=== PATIENT | male | born 1970 | race Caucasian/White ===

== ENCOUNTER 2019-06-13 14:13 | Outpatient (CLI) | payer OTHER ==
--- NOTE | 2019-06-14 06:37 | MRI Report ---
Reason: DORSALGIA, PAIN IN THIGH Procedure Date: 06/13/2019 Accession Number: [id number] / [id number] Procedure: MRI - Lumbar Spine W/O CPT Code: Final Report FULL RESULT: EXAM: MRI LUMBAR SPINE WITHOUT CONTRAST EXAM DATE: 06/13/2019 03:20 PM. CLINICAL HISTORY: Chronic right buttock and thigh pain. Right leg paresthesias. COMPARISON: None. TECHNIQUE: Multiplanar, multisequence T1-weighted and fluid-sensitive sequences of the lumbar spine from T12 to S1 without contrast. Other: None. FINDINGS: Comment: For counting purposes, a transitional vertebra at the lumbosacral junction is designated L5. The L5-S1 disk space is slightly hypoplastic compared to the remaining lumbar disk spaces. Spinal Canal: The conus terminates at T12 based on the numbering system described above.. The conus medullaris and cauda equina are unremarkable. Alignment: There is slight right convexity lumbar curvature suggesting mild scoliosis. There is no spondylolisthesis. Bone Marrow: There is mild Modic type I and II degenerative endplate change in the superior endplate of L5. A small 11 mm incidental hemangioma is noted in the L3 vertebral body. No gross fractures or bone lesions. No bone marrow replacement. Disk Levels/Facets: T12-L1: Mild anterior spurring and mild to moderate disk narrowing and desiccation. Otherwise unremarkable. No canal or foraminal stenosis. L1-L2: Mild anterior spurring. Mild disk narrowing and desiccation. No disk herniation or significant bulging. Mild bilateral facet hypertrophy. No canal or foraminal stenosis. L2-L3: Mild anterior spurring. Mild disk desiccation. There is minimal generalized disk bulge and mild bilateral facet hypertrophy. No significant canal or foraminal stenosis. L3-L4: The disk is maintained in height and signal. No disk herniation or significant bulging. Mild bilateral facet hypertrophy. No canal or foraminal stenosis. L4-L5: Mild anterior spurring. Mild to moderate disk narrowing and desiccation. There is a mild disk bulge with a superimposed focal right paracentral/subarticular disk protrusion measuring 5 mm in AP extent. This severely narrows the right subarticular recess and compresses the traversing right L5 nerve root. There is also moderate bilateral facet hypertrophy. There is ligamentum flavum thickening. Central canal is mild to moderately narrowed. Neural foramen appear adequate bilaterally. L5-S1: The L5-S1 disk is somewhat hypoplastic as L5 is transitional as discussed above for there is disk desiccation. No disk herniation or bulging. No canal or foraminal stenosis. Musculature: Normal. No edema or fatty atrophy. Other: The partially visualized retroperitoneum is unremarkable. IMPRESSION: 1. For counting purposes, a transitional vertebra at the lumbosacral junction is designated L5. By this convention the L5-S1 disk is somewhat hypoplastic. 2. Mild to moderate multilevel lumbar spondylosis and degenerative disk disease as detailed above. 3. At L4-L5, a right paracentral/subarticular disk protrusion measuring 5 mm in AP extent narrows the right subarticular recess compressing the traversing right L5 nerve root. In addition, disk bulging and facet hypertrophy results in mild to moderate central canal stenosis. 4. There is no disk herniation, central canal stenosis, or significant foraminal stenosis at the remaining lumbar levels. Comment: The following findings are so common in adults without low back pain that while we report their presence, they must be interpreted with caution and in the context of the clinical situation. (Reference Hennak et al, Spine 2001) Prevalence of findings in patients without low back pain: Disk degeneration (any evidence): 92% Disk desiccation/T2 signal loss: 83% Disk height loss: 56% Disk bulge: 64% Disk protrusion: 32% Annular tear/high intensity zone: 38% RADIA
== END 2019-06-13 14:14 | disposition home or self-care (01) ==
LOC: DI 14:13
DX: M51.26 Other intervertebral disc displacement, lumbar region (principal); M51.36 Other intervertebral disc degeneration, lumbar region; M51.37 Other intervertebral disc degeneration, lumbosacral region; M47.816 Spondylosis without myelopathy or radiculopathy, lumbar region; M48.061 Spinal stenosis, lumbar region without neurogenic claudication
CPT/HCPCS: 72148